=== PATIENT | male | born 1980 | race Caucasian/White ===

== ENCOUNTER 2019-11-01 07:05 | Day surgery (SDC) | payer BC ==
[~2019-11-01] VITALS: Ht 188 cm; Wt 100.7 kg
[2019-11-01 07:35] VITALS: BP 137/87; PULSE 73; TEMP 97.2
[2019-11-01] MEDS ORDERED: B-121000 MCG PO (07:45)
[2019-11-01] MEDS ORDERED: VTAMINC250TA PO (07:46)
[2019-11-01] MEDS ORDERED: KRILL OIL 5001 EACH PO (07:47)
[2019-11-01] MEDS ORDERED: ZYRTEC 10MG10 MG PO (07:47)
[2019-11-01] MEDS ORDERED: LOPRESSOR 225 MG/TAB PO (07:48)
[2019-11-01] MEDS ORDERED: APRISO0.375 GM PO (07:48)
[2019-11-01] MEDS ORDERED: BUSPAR DIVIDOSE15 MG PO (07:49)
[2019-11-01] MEDS ORDERED: PRILOSEC 20MG20 MG PO (07:49)
[2019-11-01] MEDS ORDERED: ROBINUL FORTE2 MG PO (07:50)
[2019-11-01] MEDS ORDERED: ZOLOFT 100MG100 MG PO (07:51)
[2019-11-01 08:25] VITALS: BP 130/61; PULSE 67; TEMP 98.1
--- NOTE | 2019-11-01 08:25 | NUR ---
Pt to GI bay 5 via cart from ENDO. Pt awake and alert. Denies pain or nausea. Muffin, water and coffee given per request. Will continue to monitor. Call light within reach.
[2019-11-01 08:40] VITALS: BP 118/71; PULSE 59
--- NOTE | 2019-11-01 08:40 | NUR ---
Pt continues to rest. Tolerating food and fluids without difficulties. Will continue to monitor. Call light within reach.
[2019-11-01 08:55] VITALS: BP 122/68; PULSE 63
--- NOTE | 2019-11-01 08:55 | NUR ---
Pt continues to rest. Denies needs. Call light within reach.
--- NOTE | 2019-11-01 09:10 | NUR ---
Discharge instructions reviewed. Pt voices understanding. IV site discontinued with all parts intact. Pt up to dress. Call light within reach.
--- NOTE | 2019-11-01 09:20 | NUR ---
Pt escorted to private car via wheel chair. Pt accompanied home by his significant other
== END 2019-11-01 09:20 | disposition home or self-care (01) ==
LOC: SDCO 07:05
DX: Z12.11 Encounter for screening for malignant neoplasm of colon (principal); K51.90 Ulcerative colitis, unspecified, without complications; E66.9 Obesity, unspecified
CPT/HCPCS: J2704; J7030

== ENCOUNTER 2021-11-19 06:21 | Day surgery (SDC) | payer BC ==
[~2021-11-19] VITALS: Ht 188 cm; Wt 102.1 kg
[~2021-11-19 06:21] MED LIST: APRISO0.375 GM PO; B-121000 MCG PO; BUSPAR DIVIDOSE15 MG PO; KRILL OIL 5001 EACH PO; LOPRESSOR 225 MG/TAB PO; PRILOSEC 20MG20 MG PO; ROBINUL FORTE2 MG PO; VITAMINC250CH PO; ZOLOFT 100MG100 MG PO; ZYRTEC 10MG10 MG PO
[2021-11-19] MEDS ORDERED: BALSALAZIDE DI750 MG PO (06:35)
[2021-11-19] MEDS ORDERED: CLARITIN 1010 MG/TAB PO (06:35)
[2021-11-19] MEDS ORDERED: GLUCOSAMINE 1000 PO (06:36)
[2021-11-19] MEDS ORDERED: KLONOPIN 0.5MG0.5 MG PO (06:37)
[2021-11-19] MEDS ORDERED: FISH OIL 1000MG1 CAP PO (06:43)
[2021-11-19 06:53] VITALS: BP 138/99; PULSE 80; TEMP 97.8
[2021-11-19 07:50] VITALS: BP 123/82; PULSE 71
[2021-11-19 08:05] VITALS: BP 128/88; PULSE 63
--- NOTE | 2021-11-19 08:16 | NUR ---
0750: Patient brought back into bay 3 from endo procedure. Report received from XUAN Barry. Patient vitally stable on room air. Denies pain or nausea. Requesting muffin and orange juice. Girlfriend at bedside. Call light left within reach. 0805: Patient tolerating food and drink well. Denies pain or nausea. Vital signs stable on room air. 0807: MD in to see patient. 0815: Patient meets discharge criteria. IV removed without complications. Went through discharge instructions with patient and family member. Questions answered. Patient got dressed and escorted to the patient entrance via wheelchair. Patient got into personal vehicle and left in the care of their family member.
[2021-11-19 08:17] VITALS: BP 144/84; PULSE 63
== END 2021-11-19 08:20 | disposition home or self-care (01) ==
LOC: SDCO 06:21
DX: Z12.11 Encounter for screening for malignant neoplasm of colon (principal); K51.80 Other ulcerative colitis without complications; K57.30 Diverticulosis of large intestine without perforation or abscess without bleeding
CPT/HCPCS: J2704; J7120

== ENCOUNTER 2023-10-13 08:07 | Day surgery (SDC) | payer BC ==
[~2023-10-13] VITALS: Ht 188 cm; Wt 108.4 kg
[~2023-10-13 08:07] MED LIST changes: +BALSALAZIDE DI750 MG PO; +CLARITIN 1010 MG/TAB PO; +FISH OIL 1000MG1 CAP PO; +GLUCOSAMINE 1000 PO; +KLONOPIN 0.5MG0.5 MG PO; +LR 1,000 ML IV SCH; +Ondansetron 4 MG/2 ML VIAL IV PRN
[2023-10-13 08:36] VITALS: BP 142/94; PULSE 59; TEMP 97.3
[2023-10-13] MEDS ORDERED: ROBINUL FORTE2 MG PO (08:46)
--- NOTE | 2023-10-13 09:02 | NUR ---
The patient ambulated back to [facility] independently using a steady gait and appeared to tolerate the activity well. Vital signs obtained. Consent signed. 20G IV started in right hand with one stick, LR infusing without difficulty. Assessment completed. Home medications reconcilled. Warm blanket provided. Significant other at bedside. Denies any futher needs at this time.
[2023-10-13 10:02] VITALS: BP 133/91; PULSE 60; TEMP 97.3
--- NOTE | 2023-10-13 10:08 | NUR ---
1000 PATIENT RETURNS TO [facility]IA C[facility]. PT AWAKE AND ALERT. RESPIRATIONS UNLABORED. AMBULATED TO RECLINER CHAIR WITH 2:1 SBA. PT DENIES NAUSEA OR ABDOMINAL PAIN. HOOKED UP TO MONITOR AND VS OBTAINED. CALL LIGHT AT SIDE AND PRESENT. 1005 PATIENT TOLERATING MUFFIN AND OJ WITHOUT NAUSEA 1010 DR. BROWN IN ROOM SPEAKING WITH PATIENT. 1035 1D/C INSTRUCTIONS REVIEWED WITH PATIENT. PT VERBALIZED UNDERSTANDING AND A COPY OF INSTRUCTIONS PROVIDED IN D/C FOLDER. 1040 PATIENT DRESSES SELF. 1045 PATIENT DISCHARGED FROM UNIT VIA W/C TO A PERSONAL VEHICLE. PT LEFT HOSPITAL IN STABLE CONDITION.
[2023-10-13 10:15] VITALS: BP 129/88; PULSE 55
[2023-10-13 10:24] VITALS: BP 143/88; PULSE 57
== END 2023-10-13 10:25 | disposition home or self-care (01) ==
LOC: SDCO 08:07
DX: K51.919 Ulcerative colitis, unspecified with unspecified complications (principal); K21.9 Gastro-esophageal reflux disease without esophagitis; Z87.891 Personal history of nicotine dependence
CPT/HCPCS: J2704; J7120